=== PATIENT | male | born 1970 | race Caucasian/White ===

== ENCOUNTER 2024-06-09 14:51 | Outpatient (AMB) | payer BC, SELFPAY ==
--- NOTE | 2024-06-09 15:07 | A.OFFVIS_ITS ---
Intake Visit Reasons: BPH/Testosterone Def(saw Dr Hager 2019) Intake Note: Previous Patient of Dr Holley Was last seen in [place] office Current Medication: Testosterone Patient is present to re-establish care for BPH/Low testosterone Patient has had Prostate surgery with Dr Holley in 2015 Patient has not been on any medications for bladder or prostate PVR: 97 Pit Clerk Required: No Allergies No Known Allergies [No Known Allergies*] Allergy (Verified 07/21/24 15:10) HPI Comments Details: Kg is a pleasant male. He is a patient of Dr. Riggs. He seen for the following urologic conditions - nephrolithiasis - erectile dysfunction - hypogonadism Patient well known to the practice Had not been seen during COVID Discussion today regarding medications Has remained on testosterone Would like to be re-evaluated for nephrolithiasis Has complained weakness of stream Trial tamsulosin Follow-up renal ultrasound Plan office cystoscopy [facility] Medical History PALMRIA (obstructive sleep apnea) Anxiety Depression Hypercholesteremia ADD (attention deficit disorder) Headache Enlarged prostate Low testosterone BPH (benign prostatic hyperplasia) Surgical History History of prostate surgery H/O sinus surgery History of tonsillectomy History of knee surgery Family History Father Prostate cancer Review of Systems Const Denies chills and Denies fever(s) Card Reports no additional complaints and Denies syncope Resp Denies cough GI Denies abdominal pain and Denies heartburn Reports as per HPI and Denies change in libido Neuro Denies syncope Psych Denies change in libido Endo Denies change in libido Physical Exam Const General: cooperative, healthy appearing, comfortable and no acute distress Orientation/consciousness: patient oriented x3 HEENT Face and sinus: Yes normal facial exam Mouth: moist mucous membranes Neck Neck: Yes normal visual inspection, Yes full ROM and Yes trachea midline Chest Chest palpation & inspection: normal inspection of the chest Resp Effort & Inspection: normal respiratory effort, able to speak in complete sentences and no respiratory distress GI Inspection: Yes normal to inspection Back/Spine/Pelvis Cervical Spine: normal cervical lordosis Thoracic/Lumbar Spine: thoracic and lumbar spine normal to inspection Skin General skin exam: no rashes or lesions noted Neuro General: patient oriented x3, gait normal, tone normal and moves all extremities Extrem General: Yes normal to inspection and Yes capillary refill normal Office Procedures Post Void Residual Post Residual Void Post Void Residual (PVR): 97 [id number] Void Residual by ultrasound Assessment & Plan Assessment & Plan (1) Low testosterone: Code(s): R79.89 - Other specified abnormal findings of blood chemistry Category: Medical (2) Bladder outlet obstruction: Code(s): N32.0 - Bladder-neck obstruction Category: Medical (3) Erectile dysfunction: Code(s): N52.9 - Male erectile dysfunction, unspecified Category: Medical (4) Nephrolithiasis: Code(s): N20.0 - Calculus of kidney Category: Medical Plan Imaging for nephrolithiasis Orders: Orders AMB Post Void Residual by ultrasound 06/09/24 N40.0 - Benign prostatic hyperplasia without lower urinary tract symptoms US renal BI 06/09/24 N20.0 - Calculus of kidney Medications: New tamsulosin (Flomax) 0.4 mg PO BEDTIME 30 caps 1RF 30 days N32.0 - Bladder-neck obstruction, N40.0 - Benign prostatic hyperplasia without lower urinary tract symptoms sildenafil administer 60 minutes before intended activity 100 mg PO ONCE PRN 30 tabs 1RF sexual activity 30 days N52.9 - Male erectile dysfunction, unspecified Patient Instructions: Imaging studies, laboratory and physical exam results were discussed and reviewed in detail. No major barriers to patient understanding were identified. An opportunity to ask questions regarding the treatment plan was provided. All questions were answered. The patient expressed understanding and agreement with the above treatment plan. The patient is aware they should contact our office by phone for worsening of their current condition or the appearance of new urologic symptoms. Compliance is encouraged with any medications and followup testing that is ordered. It is a privilege to participate in the urologic care of your patient. If you have any questions or concerns regarding treatment for the above conditions, or other urologic issues, please do not hesitate to contact me. The office telephone contact is [phone]. This note is constructed using voice recognition software. While every effort has been made to ensure accuracy polymer specialist errors may have been included. Yours sincerely, Dr Desmond Holley MD, [facility] - Urology Providers of Expert, Compassionate Care for the Genitourinary System Coding Level of Care Code Est Pt Level 4 (33426) Diagnoses Low testosterone R79.89 Bladder outlet obstruction N32.0 Erectile dysfunction N52.9 Nephrolithiasis N20.0 CPT Codes Post Residual Void - PVR CPT Code: 50686-Cgtw Void Residual by ultrasound ([id number])
== END 2024-06-09 15:51 | disposition home or self-care (01) ==
PROVIDERS: PCP Internal Medicine; Visit Provider Urology
DX: R79.89 Other specified abnormal findings of blood chemistry (principal); N32.0 Bladder-neck obstruction; N52.9 Male erectile dysfunction, unspecified; N20.0 Calculus of kidney
CPT/HCPCS: 99214

== ENCOUNTER → 2024-06-09 14:51 | Outpatient (BNVA) | payer BC, SELFPAY | PROVIDERS: PCP Internal Medicine; Visit Provider Urology | DX: N40.0 Benign prostatic hyperplasia without lower urinary tract symptoms (principal) | CPT/HCPCS: 51798 ==

== ENCOUNTER 2024-06-23 13:23 | Outpatient (REF) | payer BC, SELFPAY ==
--- NOTE | ~2024-06-23 | US_ITS ---
EXAMINATION: US RETROPERITONEAL COMPLETE (RENAL) CLINICAL INFORMATION: Renal calculus. COMPARISON: Renal ultrasound June 12, 2020 TECHNIQUE: Real-time imaging of the kidneys and bladder. FINDINGS: RIGHT KIDNEY: 12.7 x 6.6 x 5.8 cm (SAG x AP x TRV). The kidney is normal in size, contour, and echogenicity. Renal cortical thickness is normal. 8 mm nonobstructing lower pole calculus. No hydronephrosis. LEFT KIDNEY: 13.1 x 5.1 x 4.8 cm (SAG x AP x TRV). The kidney is normal in size, contour, and echogenicity. Renal cortical thickness is normal. There are a few small nonobstructing calculi in the left kidney, largest measuring 4 mm. There is no hydronephrosis. US/US renal BI IMPRESSION: Small bilateral nonobstructing renal calculi. No hydronephrosis of either kidney. Electronically signed by: Samm Kent MD 07/09/2024 06:41 AM EDT
== END 2024-06-23 13:24 | disposition home or self-care (01) ==
LOC: HO.US 13:23
PROVIDERS: PCP Internal Medicine; Visit Provider Urology
DX: N20.0 Calculus of kidney (principal)
CPT/HCPCS: 76775

== ENCOUNTER 2024-07-21 14:45 | Outpatient (AMB) | payer BC, SELFPAY ==
--- NOTE | 2024-07-21 15:04 | A.OFFVIS_ITS ---
Intake Visit Reasons: cysto/US Intake Note: Patient is Present for Cystoscopy Urology Med: Tamsulosin, Sildenafil, Testosterone Antibiotic Allergy:None Blood Thinner:none URO- G Disposable Cystoscope lot: [id number] exp: 02/18/2027 University Relations Recruiter Required: No Accompanied by: Self / Same As Patient Allergies No Known Allergies [No Known Allergies*] Allergy (Verified 07/21/24 15:10) HPI Comments Details: Kg is a pleasant male. He is a patient of Dr. Riggs. He seen for the following urologic conditions - nephrolithiasis - erectile dysfunction - hypogonadism Here for office cystoscopy Discussed ultrasound minimal symptoms would like to observe Cystoscopy with mild bladder neck narrowing, grade 1/2 trabeculations Would like to continue with tamsulosin Lower urinary tract symptoms Primary symptoms emptying in nature weakness of stream Tamsulosin Intervention - TUIP performed 2016 Nephrolithiasis Renal ultrasound - 07/03 8 mm right, 4 mm left PFSH Medical History PALMIRA (obstructive sleep apnea) Anxiety Depression Hypercholesteremia ADD (attention deficit disorder) Headache Enlarged prostate Low testosterone BPH (benign prostatic hyperplasia) Surgical History History of prostate surgery H/O sinus surgery History of tonsillectomy History of knee surgery Family History Father Prostate cancer Review of Systems Const Denies chills and Denies fever(s) Card Reports no additional complaints and Denies syncope Resp Denies cough GI Denies abdominal pain and Denies heartburn Reports as per HPI and Denies change in libido Neuro Denies syncope Psych Denies change in libido Endo Denies change in libido Physical Exam Const General: cooperative, healthy appearing, comfortable and no acute distress Orientation/consciousness: patient oriented x3 HEENT Face and sinus: Yes normal facial exam Mouth: moist mucous membranes Neck Neck: Yes normal visual inspection, Yes full ROM and Yes trachea midline Chest Chest palpation & inspection: normal inspection of the chest Resp Effort & Inspection: normal respiratory effort, able to speak in complete sentences and no respiratory distress GI Inspection: Yes normal to inspection Back/Spine/Pelvis Cervical Spine: normal cervical lordosis Thoracic/Lumbar Spine: thoracic and lumbar spine normal to inspection Skin General skin exam: no rashes or lesions noted Neuro General: patient oriented x3, gait normal, tone normal and moves all extremities Extrem General: Yes normal to inspection and Yes capillary refill normal Office Procedures Cystoscopy Consent Discussed risk and benefit or proposed procedure with the patient. Information consent for procedure given to the patient. Discussed technical aspects, risks, benefits and alternatives in full. Addressed all of the patient's questions and concerns regarding the procedure. The patient demonstrated knowledge and understanding. They wish to proceed with this procedure. Preparation The patient was prepped in the usual manner. A passenger car conductor was present and in the room. Genitalia was prepped with betadine solution in a sterile manner. Lidocaine Jelly 2% was placed into the urethra and 16Fr flexible Olympus cystoscope was inserted into the meatus after adequate lubrication. Procedure Cystoscopy performed using a disposable Urovue digital 16 [place] cystoscope. Meatus circumcised Urethra anterior and posterior urethra normal Prostatic Urethra tight bladder neck Bladder examination with retroflexion of cystoscope Bladder Orifices normal shape and position Bladder Capacity median Trabeculations grade 1 Cellule Formation - Diverticulum Formation - Mucosal Erythema - Bladder Tumor - 26537-[id number] DISPOSABLE SCOPE URO-G FLEXIBLE SCOPE Procedure code (CPT) selection complete Office Meds lidocaine HCl 2 % mucosal jelly in applicator Performing Provider: Desmond Holley MD Performing Location: [facility] [place] [facility] Administered by: Cl Streeter LPN on 07/21/24 15:25 Dose Route Admin Location Dispensed Lot Number Expiration Date NDC Gun Sealing Machine Operator 10 mL intra-urethral 10 mL nitrofurantoin monohydrate/macrocrystals 100 mg capsule Performing Provider: Desmond Holley MD Performing Location: [facility] [place] [facility] Administered by: Cl Streeter LPN on 07/21/24 15:25 2 Dose Route Admin Location Dispensed Lot Number Expiration Date NDC Gun Sealing Machine Operator 100 mg PO 1 cap naproxen 500 mg tablet Performing Provider: Desmond Holley MD Performing Location: [facility] [place] [facility] Administered by: Cl Streeter LPN on 07/21/24 15:25 Dose Route Admin Location Dispensed Lot Number Expiration Date NDC Gun Sealing Machine Operator 500 mg PO 1 tab Results AMB Urinalysis, Automated UA Leukoctes 0 Laura/uL Last Edit by BALA Ewing on 07/21/24 15:22 UA Nitrite Negative Last Edit by Fabiana Hazel, RMA on 07/21/24 15:22 UA Urobilinogen 0.2 mg/dL Last Edit by Fabiana Hazel, RMA on 07/21/24 15:2 2 UA Protein 15 mg/dL Last Edit by Fabiana Hazel, RMA on 07/21/24 15:22 UA pH 6.0 Last Edit by Fabiana Hazel, RMA on 07/21/24 15:22 UA Blood 0 Jimbo/uL Last Edit by Fabiana Hazel, RMA on 07/21/24 15:22 UA Specific [place] 1.025 Last Edit by Fabiana Hazel, RMA on 07/21/24 15: 22 UA Ketone Negative Last Edit by Fabiana Hazel, RMA on 07/21/24 15:22 UA Bilirubin 0 mg/dL Last Edit by Fabiana Hazel, RMA on 07/21/24 15:22 UA Glucose 0 mg/dL Last Edit by Fabiana Hazel, RMA on 07/21/24 15:22 Results Reviewed Results Reviewed: Laboratory Last Values Urine pH (Auto) 6.0 07/21/24 15:11 Specific [place] (Auto) 1.025 07/21/24 15:11 Urine Protein (Auto) 15 mg/dL 07/21/24 15:11 Glucose (UA)(Auto) 0 mg/dL 07/21/24 15:11 Urine Ketones (Auto) Negative 07/21/24 15:11 Urine Blood (Auto) 0 Jimbo/uL 07/21/24 15:11 Urine Nitrite (Auto) Negative 07/21/24 15:11 Urine Bilirubin (Auto) 0 mg/dL 07/21/24 15:11 Urine Urobilinogen (Auto) 0.2 mg/dL 07/21/24 15:11 Leukocyte Esterase (Auto) 0 Laura/uL 07/21/24 15:11 Assessment & Plan Assessment & Plan (1) Bladder outlet obstruction: Code(s): N32.0 - Bladder-neck obstruction Category: Medical (2) Erectile dysfunction: Code(s): N52.9 - Male erectile dysfunction, unspecified Category: Medical (3) Nephrolithiasis: Code(s): N20.0 - Calculus of kidney Category: Medical Plan Continue tamsulosin Orders: Orders AMB Cystoscopy 07/21/24 N32.0 - Bladder-neck obstruction AMB Urinalysis Automated 07/21/24 Z13.9 - Encounter for screening, unspecified Patient Instructions: Imaging studies, laboratory and physical exam results were discussed and reviewed in detail. No major barriers to patient understanding were identified. An opportunity to ask questions regarding the treatment plan was provided. All questions were answered. The patient expressed understanding and agreement with the above treatment plan. The patient is aware they should contact our office by phone for worsening of their current condition or the appearance of new urologic symptoms. Compliance is encouraged with any medications and followup testing that is ordered. It is a privilege to participate in the urologic care of your patient. If you have any questions or concerns regarding treatment for the above conditions, or other urologic issues, please do not hesitate to contact me. The office telephone contact is [phone]. This note is constructed using voice recognition software. While every effort has been made to ensure accuracy tower control operator errors may have been included. Yours sincerely, Dr Desmond Holley MD, [facility] - Urology Providers of Expert, Compassionate Care for the Genitourinary System Coding Level of Care Code Est Pt Level 3 (37213) Diagnoses Bladder outlet obstruction N32.0 Erectile dysfunction N52.9 Nephrolithiasis N20.0 CPT Codes Cystoscopy - CPT: 38145-[id number] ([id number])
== END 2024-07-21 16:03 | disposition home or self-care (01) ==
PROVIDERS: PCP Internal Medicine; Visit Provider Urology
DX: N32.0 Bladder-neck obstruction (principal); N52.9 Male erectile dysfunction, unspecified; N20.0 Calculus of kidney
CPT/HCPCS: 52000; 99213

== ENCOUNTER → 2024-07-21 14:45 | Outpatient (BNVA) | payer BC, SELFPAY | PROVIDERS: PCP Internal Medicine; Visit Provider Urology | DX: N32.0 Bladder-neck obstruction (principal); N52.9 Male erectile dysfunction, unspecified; N20.0 Calculus of kidney | CPT/HCPCS: 52000; 81003 ==